=== PATIENT | female | born 1980 ===

== ENCOUNTER 2017-05-27 08:14 | Day surgery (SDC) | payer MEDICAID ==
[2017-05-19 12:17] VITALS: BMI 26.6
[2017-05-27 08:54] LABS: BASO # 0.01 [, K/mm3] (0.0-2.0); BASO % 0.3 % (0.0-3.0); EOS # 0.1 (0.0-0.7); EOS % 1.8 % (1.5-5.0); GRAN # 1.94 (1.4-6.5); GRAN % 50.6 % (50.0-68.0); LYMPH # 1.5 (1.2-3.4); LYMPH % 38.9 % (22.0-35.0); MEAN CELL VOLUME 90.6 fl (80.0-105.0); MEAN PLATELET VOLUME 9.4 fl (7.0-11.0); MONO # 0.3 (0.1-0.6); MONO % 8.4 % (1.0-6.0); RBC 4.14 [, 10^6/uL] (3.5-6.1); RED CELL DISTRIBUTION WIDTH 13.5 % (11.5-14.5); WHITE BLOOD COUNT 3.8 [, 10^3/ul] (4.5-11.0)
[2017-05-27 09:06] LABS: INR 0.97 (0.93-1.08); PARTIAL THROMBOPLASTIN TIME 29.3 Seconds (25.1-36.5); PROTHROMBIN TIME 11.1 SECONDS (9.4-12.5)
[2017-05-27 09:10] LABS: BLOOD UREA NITROGEN 12 mg/dL (7-21); CALCIUM 9.3 mg/dL (8.4-10.5); GFR AFRICAN-AMERICAN > 60; GFR NON-AFRICAN AMERICAN > 60
[2017-05-27 09:27] LABS: T4 7.7 ug/dL (5.5-11.0)
[2017-05-27 09:41] LABS: T3 1.29 ng/mL (0.97-1.69)
[2017-05-27] MEDS ORDERED: Bupivacaine 0.5% Inj(30mL) ONE (10:42)
[2017-05-27] MEDS ORDERED: Propofol 10 mg/ml Inj (20 ML) ONE (10:47)
[2017-05-27] MEDS ORDERED: Midazolam 2 MG/2 ML VIAL ONE (10:48)
[2017-05-27] MEDS ORDERED: Lidocaine 2% Inj (20ml) ONE (10:48)
[2017-05-27] MEDS ORDERED: Sodium Chloride 0.9% 1,000 ML IV SCH (11:45)
[2017-05-27 11:47] VITALS: TEMP 98
--- NOTE | 2017-05-27 11:47 | PCM.SURG1 ---
Surgeon's Initial Post Op Note - Surgeon's Notes Surgeon: Dr. Morales Dulser: Dr. Hearn PGY-3 Type of Anesthesia: IV Sedation, Local Pre-Operative Diagnosis: Thyroid nodules Operative Findings: see operative report Post-Operative Diagnosis: Thyroid nodules Operation Performed: Fine needle aspiration of thyroid Specimen/Specimens Removed: fine needle aspiration Estimated Blood Loss: EBL {In ML}: 1 Blood Products Given: N/A Drains Used: No Drains Post-Op Condition: Good Date of Surgery/Procedure: 05/27/17 Time of Surgery/Procedure: 11:46
[2017-05-27 12:05] VITALS: O2SAT 97
[2017-05-27 12:25] VITALS: BP 107/61; PULSE 63; RESP 20
--- NOTE | 2017-05-29 21:23 | OP ---
PROCEDURE DATE: 05/27/2017 SURGEON: Hans Morales MD. POWDERER: Ariane Hearn DO, PGY-2 ANESTHESIA ADMINISTERED BY: Valdo Barney MD. TYPE OF ANESTHESIA: MAC-Marcaine 0.5-5 mL. PREOPERATIVE DIAGNOSIS: Multiple thyroid nodules (isthmus-3). POSTOPERATIVE DIAGNOSIS: Multiple thyroid nodules (isthmus-3). PATHOLOGY: Pending. PROCEDURE: On 05/27/2017, fine needle aspiration of the thyroid isthmus. OPERATIVE INDICATION: The patient is a 36-year-old -[place] female with a mildly enlarged thyroid that underwent ultrasound testing by her private physician Dr. Makayla Sanders. Surprisingly, it demonstrated 3 discrete nodules; 3 mm, 4 mm, and 7 mm in the thyroid isthmus (midline thyroid). The patient is clinically euthyroid as well as chemically and has no complaints or symptoms whatsoever. She has been referred for evaluation of these 3 nodules and has been recommended to undergo fine needle aspiration with ultrasound guidance. OPERATIVE NOTE: The patient was brought to the operating room, identified by her wrist band, underwent time-out procedure and was placed on the table in a semi-Lepe's position. The shoulders were elevated on a bolster pillow. The neck was hyper extended. Then, the patient underwent sedation and oxygenation monitoring (MAC) by the barber or beauty shop manager. The neck was prepped with Hibiclens and Chlorhexidine preparation and then aseptically draped. Using the ultrasound probe, the thyroid gland was visualized on both sides and the isthmus was also seen, but the resolution of this particular ultrasound machine failed to demonstrate the 3 discrete nodules. The skin was infiltrated with bupivacaine plain and a 22-gauge spinal needle attached to a 10 mL syringe. This was inserted into the skin and under ultrasound guidance, inserted into the isthmus of the thyroid and multiple passes taken with suction on the needle and the contents brought up and placed on microscope slides and smeared and air dried. Repeat number of passages was performed, still not able to demonstrate the discrete nodules; however, the entire isthmus had been sampled at this point and submitted on cytology slides for the pathology evaluation. Once the needle had been removed, dry compression was placed over the thyroid and the anterior midline neck for five minutes and bandage placed and the patient was transported to the recovery room in a satisfactory condition. Sponge, instrument, and suture count were verified as correct throughout the procedure. Estimated blood loss during this procedure was less than 1 mL of blood. This dictation will be electronically signed without being read. The surgical dental assistant was present throughout the procedure from beginning to end and was extremely helpful in aiming the needle for isthmus sampling and adjusting the ultrasound probe. Hans Morales MD
== END 2017-05-27 13:05 | disposition home or self-care (01) ==
LOC: SDS 08:14
PROVIDERS: ATTEND Surgery
DX: E06.3 Autoimmune thyroiditis (principal); Z98.51 Tubal ligation status
CPT/HCPCS: 10021; 36415; 80048; 84436; 84443; 84480; 84703; 85025; 85610; 85730; 88173; J2250; J2704; J3010; J7040; J7120